=== PATIENT | female | born 1935 | race Caucasian/White ===

== ENCOUNTER → 2017-03-09 | Outpatient (CLI) | payer MEDICARE, OTHER ==
[~2017-03-09] MED LIST: CYMBALTA PO; EFFEXOR-XR75 MG PO; FISH OIL 1,0001 CA2 PO; FLAX SEED OIL1000 M1 PO; FLEXERIL PO; FLEXERIL10 MG PO; HYDROCODON-ACE1 EAC5 PO; LIPITOR20 MG PO; LISINOPRIL/HCTZ PO; LISINOPRIL10 MG PO; LORTAB 7.51 TAB 7.5/ PO; NIACIN100 MG PO; PROTONIX PO; REGLAN5 MG; REGLAN5 MG PO; SYNTHROID PO; SYNTHROID25 MCG PO; TOPROL XL PO; TOPROL XL50 MG PO; ZETIA PO
--- NOTE | ~2017-03-09 | CR265 ---
[facility] A Service of [facility] & [facility] RADIOLOGY TEXT RESULTS PATIENT: JSOE ISLAS LOCATION: [facility] : 37 UNIT #: [id number] AGE: [address]: Gera Waldron MD SEX: F ORDER DR: [id number] [facility] [address] [place], [place] [address] [id number] O MR#: [id number] Acc #: [id number] NAME: JOSE ISLAS. : 1935 SEX: F STUDY DATE/TIME: 03/09/2017 9:49 UNIT: [facility] ROOM: STUDY DESCRIPTION: CR Upper GI Series Wo KUB Attending Physician: Gera Waldron M.D. Referring Physician: Gera Waldron M.D. Ordering Physician: Gera Waldron M.D. Primary Care Physician: Xuan Vergara M.D. MEDICAL IMAGING REPORT This report is preliminary unless electronic signature is present EXAM Upper GI series HISTORY Gastroesophageal reflux disease. Upper abdominal pain and chest pain since endoscopy in 2016. History of hiatal hernia. FINDINGS Under fluoroscopic control barium crystals were administered orally. Swallowing was normal. The esophagus is somewhat patulous with multiple tertiary waves. The patient has a very large hiatal hernia. In fact, majority of the stomach is in the thorax. The duodenal bulb and C sweep are in the abdomen and they appear unremarkable. No gross pathology is seen within the stomach proper. There is no evidence of gastric outlet obstruction. Multiple tertiary waves are present in the esophagus. CONCLUSION 1. 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 Only the distal antrum, duodenal bulb and C sweep are intraabdominal. 2. 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 Total fluoroscopy time was 5.0 minutes. Total spot radiographs, 28 films. Dictated by... Lester Dotson M.D. THIS IS AN ELECTRONICALLY VERIFIED REPORT Lester Dotson M.D. at 03/11/2017 2:19 PM KIT/khurram TD: 03/09/2017 15:28 JOB #: [id number] [facility] A Service of [facility] & [facility] RADIOLOGY TEXT RESULTS PATIENT: JOSE ISLAS LOCATION: [facility] #: [id number] : 37 UNIT #: [id number] AGE: [address]: Gera Waldron MD SEX: F ORDER DR: MEDICAL IMAGING REPORT Page 1 of 1 COPY
== END | disposition home or self-care (01) ==
LOC: CRAD 09:04
DX: K21.9 Gastro-esophageal reflux disease without esophagitis (principal); K22.2 Esophageal obstruction; R10.13 Epigastric pain; K44.9 Diaphragmatic hernia without obstruction or gangrene; R11.0 Nausea; Q40.8 Other specified congenital malformations of upper alimentary tract; K22.8 Other specified diseases of esophagus
CPT/HCPCS: 74240

== ENCOUNTER 2017-04-01 14:50 | Emergency (ER) | payer MEDICARE, OTHER ==
--- NOTE | ~2017-04-01 | CT71 ---
[facility] A Service [facility] RADIOLOGY TEXT RESULTS PATIENT: JOSE ISLAS LOCATION: [facility] : 37 UNIT #: [id number] AGE: [address]: Adria Davidson MD SEX: F ORDER DR: [id number] [facility] [address] [place], [place] [address] [id number] P MR#: [id number] Acc #: [id number] NAME: JOSE ISLAS. : 1935 SEX: F STUDY DATE/TIME: 04/01/2017 13:16 UNIT: [facility] ROOM: STUDY DESCRIPTION: CT Head Wo Contrast Attending Physician: Adria Davidson M.D. Ordering Physician: Adria Davidson M.D. Primary Care Physician: Xuan Vergara M.D. MEDICAL IMAGING REPORT This report is preliminary unless electronic signature is present EXAM Head CT no contrast 04/01/2017 INDICATIONS 81-year-old female who fell yesterday and has head and neck pain ever since. Pain in the front to back in the midline neck pain on the left. TECHNIQUE Noncontrast CT of the brain was performed. This CT exam was performed with one or more of the following radiation dose reduction techniques: automatic control, adjustment of mA and/or kV according to patient size, and iterative reconstruction. COMPARISON 11/25/[address] BRAIN: There is mild generalized atrophy. Sulci and ventricles otherwise unremarkable. No midline shift. No evidence of acute intracranial hemorrhage. Periventricular white matter changes are present and nonspecific but likely reflect sequela of chronic ischemic small vessel disease. Globes are intact. Bones are intact. Minimal ethmoid sinus disease. IMPRESSION 1. No clearly acute intracranial process. No evidence of acute intracranial hemorrhage. 2. Atrophy and chronic ischemic changes. 2. Mild sinus disease that appears chronic. Dictated by... Owen Steven M.D. [facility] A Service [facility] RADIOLOGY TEXT RESULTS PATIENT: JOSE ISLAS LOCATION: [facility] : 37 UNIT #: [id number] AGE: [address]: Adria Davidson MD SEX: F ORDER DR: THIS IS AN ELECTRONICALLY VERIFIED REPORT Owen Steven M.D. at 04/01/2017 5:32 PM JAVIER/quin TD: 04/01/2017 14:33 JOB #: [id number] MEDICAL IMAGING REPORT Page 1 of 1 COPY
--- NOTE | ~2017-04-01 | CT52 ---
[facility] A Service of [facility] RADIOLOGY TEXT RESULTS PATIENT: JOSE ISLAS LOCATION: [facility] : 37 UNIT #: [id number] AGE: [address]: Adria Davidson MD SEX: F ORDER DR: [id number] [facility] [address] [place], [place] [address] [id number] E MR#: [id number] Acc #: [id number] NAME: JOSE ISLAS. : 1935 SEX: F STUDY DATE/TIME: 04/01/2017 13:16 UNIT: [facility] ROOM: STUDY DESCRIPTION: CT Cervical Spine Wo Cont Attending Physician: Adria Davidson M.D. Ordering Physician: Adria Davidson M.D. Primary Care Physician: Xuan Vergara M.D. MEDICAL IMAGING REPORT This report is preliminary unless electronic signature is present EXAM Cervical spine CT scan without contrast HISTORY Fall yesterday with neck pain since then. COMPARISON 11/25/2016 TECHNIQUE Axial 2.0 mm images were obtained through the cervical spine without contrast. Sagittal and coronal reconstructions were generated. This CT exam was performed with one or more of the following radiation dose reduction techniques: automatic exposure control, adjustment of mA and/or kV according to patient size, and iterative reconstruction. FINDINGS There is no fracture or subluxation. The alignment is normal. There is minimal posterior osteophyte formation at C6-7. There is some facet degenerative changes throughout the cervical spine. There has been no change from 11/25/2016. IMPRESSION[ Mild degenerative changes. No change from 11/25/2016. No acute findings. Dictated by... Will Gonzalez M.D. THIS IS AN ELECTRONICALLY VERIFIED REPORT Will Gonzalez M.D. at 04/01/2017 3:48 PM DESHAWN/kim [facility] A Service of [facility] RADIOLOGY TEXT RESULTS PATIENT: JOSE ISLAS LOCATION: [facility] : 37 UNIT #: [id number] AGE: [address]: Adria Davidson MD SEX: F ORDER DR: TD: 04/01/2017 14:56 JOB #: [id number] MEDICAL IMAGING REPORT Page 1 of 1 COPY
== END 2017-04-01 15:13 | disposition home or self-care (01) ==
LOC: CED 14:50
DX: S09.90XA Unspecified injury of head, initial encounter (principal); I10 Essential (primary) hypertension; W01.0XXA Fall on same level from slipping, tripping and stumbling without subsequent striking against object, initial encounter; Y92.9 Unspecified place or not applicable
CPT/HCPCS: 70450; 72125; 99284